=== PATIENT | male | born 1955 | race African-American/Black ===

== ENCOUNTER 2022-01-12 03:49 | Emergency (ER) | payer OTHER, MEDICARE ==
[~2022-01-12] VITALS: Ht 175.3 cm; Wt 93.9 kg
[2022-01-12 04:14] VITALS: BP_SYST 166
--- NOTE | 2022-01-12 04:15 | NUR ---
PER PATIENT, PATIENT HAS HAD A STIFF NECK AND HEADACHE FOR THREE DAYS, INCREASINGLY WORSE. NO OTHER SYMPTOMS.
--- NOTE | 2022-01-12 04:18 | NUR ---
PATIENT BROUGHT TO BED 8 FOR EVAL, REPORT GIVEN TO ESTIVEN FLORES.
[2022-01-12] MEDS ORDERED: KETOROLAC TROMETHAMINE 30 MG VIAL IVP ONE (04:45)
[2022-01-12] MEDS ORDERED: DIPHENHYDRAMINE INJ 50 MG/ML VIAL IVP ONE (04:45)
--- NOTE | 2022-01-12 05:00 | NUR ---
IV ACCESS PLACED AT RT FA G-20 SALINE LOCKED. IV MEDS ORDERED GIVEN FOR PAIN.
--- NOTE | 2022-01-12 05:02 | NUR ---
RECD REPORT FROM [facility] PT BED 8 CONNECETED TO BEDSIDE MONITOR MD CROW IN THE ROOM EXAMINING PATIENT C/O NECK PAIN AND HEADACHE.
[2022-01-12 06:37] LABS: MEAN CORPUSCULAR HEMOGLOBIN 29 pg (27-31); WHITE BLOOD COUNT (AUTO) 8.9 K/uL (4.8-10.8)
[2022-01-12 06:40] LABS: CALCIUM 8.7 mg/dL (8.4-11.0); CREATININE 1.38 mg/dL (0.55-1.30); POTASSIUM 3.7 mmol/L (3.5-5.1)
--- NOTE | 2022-01-12 06:44 | NUR ---
PENDING LAB RESULTS AND CT NECK TO BE DONE.
[2022-01-12 06:45] LABS: ALBUMIN 3.1 g/dL (3.4-4.8); TOTAL BILIRUBIN 0.8 mg/dL (0.0-1.0)
[2022-01-12] MEDS ORDERED: OXYCODONE/ACETAMINOPHEN *10*mg/325 mg TABLET PO ONE (06:45)
[2022-01-12] MEDS ORDERED: DIAZEPAM 5 MG TABLET (VALIUM) PO ONE (06:45)
[2022-01-12] MEDS ORDERED: NACL 0.9% 1,000 ML IV ONE (06:45)
[2022-01-12] MEDS ORDERED: IBUP-1969 PO ×3 (06:46)
[2022-01-12] MEDS ORDERED: PERC10 PO (06:46)
[2022-01-12] MEDS ORDERED: METH-634 PO (06:46)
--- NOTE | 2022-01-12 07:00 | NUR ---
Report received from shift nurse manager RN for continuity of care. Patient stable.
[2022-01-12 07:03] LABS: BASOPHILS % (AUTO) 0.3 % (0.0-2.0); EOSINOPHILS % (AUTO) 0.3 % (0.0-4.0); HEMATOCRIT 40.2 % (36-54); HEMOGLOBIN 13.4 g/dL (14.0-18.0); LYMPHOCYTES # (AUTO) 0.8 K/uL (1.0-5.5); MEAN CORPUSCULAR HGB CONC 33 % (32-36); MEAN CORPUSCULAR VOLUME 86 fL (79.0-98.0); MONOCYTES # (AUTO) 0.7 K/uL (0.0-1.0); MONOCYTES % (AUTO) 8.1 % (1.7-9.3); NEUTROPHILS # (AUTO) 7.3 K/uL (1.8-7.7); NEUTROPHILS % (AUTO) 82.3 % (40.0-70.0); PLATELET COUNT (AUTO) 175 K/uL (130-430); RED BLOOD CELL COUNT(AUTO) 4.66 MIL/uL (4.2-6.2); RED CELL DISTRIBUTION WIDTH 14.8 % (9.0-15.0)
--- NOTE | 2022-01-12 08:49 | NUR ---
Dr. Fernandes speaking with patient and family.
--- NOTE | 2022-01-12 09:00 | NUR ---
Patient given written and verbal discharge instructions and verbalizes understanding. ER MD discussed with patient the results and treatment provided. Patient in stable condition. ID arm band removed. IV catheter removed intact and dressing applied, no active bleeding. Rx of percocet and robaxin given. Patient educated on pain management and to follow up with PMD. Pain Scale . Opportunity for questions provided and answered. Medication side effect fact sheet provided.
[2022-01-12 09:10] VITALS: BP_SYST 130
== END 2022-01-12 09:10 | disposition home or self-care (01) ==
LOC: SED 03:49
DX: M43.6 Torticollis (principal); R51.9 Headache, unspecified; Z79.899 Other long term (current) drug therapy
CPT/HCPCS: 99285; 70450; 96374; 96361; 96375; 80053; 82550; 85025; 36415; 93005; 72125; 76376; J1200; J1885; J7030

== ENCOUNTER 2023-05-16 08:33 | Emergency (ER) | payer OTHER, MEDICARE ==
[~2023-05-16] VITALS: Ht 172.7 cm; Wt 93.9 kg
[~2023-05-16 08:33] MED LIST: IBUP-1969 PO; METH-634 PO; PERC10 PO
[2023-05-16 08:45] VITALS: BP_SYST 157; PULSE 61; RESP 18; TEMP 98.1; O2SAT 98
[2023-05-16] MEDS ORDERED: ZAN4 PO (09:00)
[2023-05-16 09:30] VITALS: BP_SYST 140; PULSE 69; RESP 19; TEMP 98.1; O2SAT 98
== END 2023-05-16 09:30 | disposition home or self-care (01) ==
LOC: SED 08:33
DX: M79.10 Myalgia, unspecified site (principal); R10.31 Right lower quadrant pain; I10 Essential (primary) hypertension; Z79.899 Other long term (current) drug therapy
CPT/HCPCS: 99283

== ENCOUNTER 2023-11-29 09:52 | Inpatient (IN) | payer OTHER, MEDICARE ==
[~2023-11-29] VITALS: Ht 175.3 cm; Wt 97.2 kg
[~2023-11-29 09:52] MED LIST changes: +ZAN4 PO
[2023-11-29 09:56] VITALS: BP_SYST 168; PULSE 85; RESP 22; TEMP 98.3; O2SAT 98
[2023-11-29 11:57] LABS: BASOPHILS % (AUTO) 0.7 % (0.0-2.0); EOSINOPHILS # (AUTO) 0.1 K/uL (0.0-0.4); EOSINOPHILS % (AUTO) 2.3 % (0.0-4.0); HEMATOCRIT 45.5 % (36-54); HEMOGLOBIN 14.7 g/dL (14.0-18.0); LYMPHOCYTES # (AUTO) 2.1 K/uL (1.0-5.5); LYMPHOCYTES % (AUTO) 33.4 % (20.5-51.5); MEAN CORPUSCULAR HEMOGLOBIN 29 pg (27-31); MEAN CORPUSCULAR HGB CONC 32 % (32-36); MEAN CORPUSCULAR VOLUME 88 fL (79.0-98.0); MONOCYTES # (AUTO) 0.4 K/uL (0.0-1.0); MONOCYTES % (AUTO) 6.2 % (1.7-9.3); NEUTROPHILS # (AUTO) 3.6 K/uL (1.8-7.7); NEUTROPHILS % (AUTO) 57.4 % (40.0-70.0); PLATELET COUNT (AUTO) 244 K/uL (130-430); RED BLOOD CELL COUNT(AUTO) 5.16 MIL/uL (4.2-6.2); RED CELL DISTRIBUTION WIDTH 14.4 % (9.0-15.0); WHITE BLOOD COUNT (AUTO) 6.3 K/uL (4.8-10.8)
[2023-11-29] MEDS: ENOXAPARIN SODIUM 100 MG/ML SYRINGE SUBCUT ONE (11:57)
[2023-11-29 12:09] LABS: CALCIUM 9.6 mg/dL (8.4-11.0); CREATININE 1.25 mg/dL (0.55-1.30); POTASSIUM 4.6 mmol/L (3.5-5.1)
[2023-11-29] MEDS ORDERED: EZET10TA30 PO (12:23)
[2023-11-29] MEDS ORDERED: LISI30TA36 PO ×2 (12:23→13:57)
[2023-11-29] MEDS ORDERED: ROSU10TA72 PO (12:23)
[2023-11-29] MEDS: *HEPARIN PER PHARMACY XX ONE (12:30)
[2023-11-29 12:53] LABS: PROTHROMBIN TIME 10.7 SECS (9.5-12.5)
[2023-11-29] MEDS ORDERED: HEPARIN SODIUM,PORCINE 3000 UNITS/0.6 ML BOLUS IVP PRN (13:15)
[2023-11-29] MEDS ORDERED: HEPARIN SODIUM,PORCINE 2000 UNITS/0.4 ML BOLUS IVP PRN (13:15)
[2023-11-29 14:22] LABS: CHOLESTEROL 129 mg/dL (<200); HDL CHOLESTEROL 65 mg/dL (>45); TRIGLYCERIDES 57 mg/dL (30-150)
[2023-11-29] MEDS: HEPARIN SODIUM,PORCINE 5,000 UNITS/ML VIAL IV ONE (15:04)
[2023-11-29] MEDS: HEPARIN 25,000 UNITS in 250 ML PREMIX IV PRN (15:07)
[2023-11-29] MEDS: amLODIPine BESYLATE 5 MG TABLET PO ONE (15:14)
[2023-11-29] MEDS: lisinopriL 20 MG TABLET PO ONE (15:14)
[2023-11-29 16:02] VITALS: BP_SYST 135; PULSE 60; RESP 15; TEMP 98.2; O2SAT 98
[2023-11-29] MEDS: EZETIMIBE 10 MG TABLET PO SCH (18:48)
[2023-11-29 19:30] VITALS: BP_SYST 142; PULSE 64; RESP 20; TEMP 97.9; O2SAT 96
[2023-11-30 03:35] VITALS: BP_SYST 147; PULSE 74; RESP 16; TEMP 97.1; O2SAT 95
[2023-11-30] MEDS ORDERED: iohexoL 350 mgI/mL, 100 ML INFUS..BTL IV ONE (07:31)
[2023-11-30 08:00] VITALS: BP_SYST 145; PULSE 64; RESP 16; TEMP 97.6; O2SAT 98
[2023-11-30] MEDS ORDERED: ROSUVASTATIN CALCIUM 5 MG/TAB (CRESTOR) PO SCH (09:00)
[2023-11-30 09:06] LABS: BASOPHILS % (AUTO) 0.6 % (0.0-2.0); EOSINOPHILS # (AUTO) 0.2 K/uL (0.0-0.4); EOSINOPHILS % (AUTO) 3.3 % (0.0-4.0); HEMATOCRIT 43.4 % (36-54); LYMPHOCYTES # (AUTO) 1.9 K/uL (1.0-5.5); LYMPHOCYTES % (AUTO) 31.6 % (20.5-51.5); MEAN CORPUSCULAR HEMOGLOBIN 29 pg (27-31); MEAN CORPUSCULAR HGB CONC 32 % (32-36); MEAN CORPUSCULAR VOLUME 88 fL (79.0-98.0); MONOCYTES # (AUTO) 0.4 K/uL (0.0-1.0); MONOCYTES % (AUTO) 7.2 % (1.7-9.3); NEUTROPHILS # (AUTO) 3.4 K/uL (1.8-7.7); NEUTROPHILS % (AUTO) 57.3 % (40.0-70.0); PLATELET COUNT (AUTO) 254 K/uL (130-430); RED CELL DISTRIBUTION WIDTH 14.3 % (9.0-15.0)
[2023-11-30 09:10] LABS: ALBUMIN 3.2 g/dL (3.4-4.8); CREATININE 1.41 mg/dL (0.55-1.30); TOTAL BILIRUBIN 0.6 mg/dL (0.0-1.0); TOTAL PROTEIN, SERUM 7.7 g/dL (6.4-8.3)
[2023-11-30] MEDS: lisinopriL 20 MG TABLET PO SCH (09:16)
[2023-11-30] MEDS: ATORVASTATIN 20 MG TABLET PO SCH (09:17)
[2023-11-30 10:54] VITALS: O2SAT 98
[2023-11-30 12:03] VITALS: BP_SYST 141; PULSE 66; RESP 18; TEMP 97.4
[2023-11-30 16:00] VITALS: BP_SYST 147; PULSE 64; RESP 20; TEMP 98.6; O2SAT 100
[2023-11-30 20:45] VITALS: BP_SYST 155; PULSE 70; RESP 20; TEMP 97.8; O2SAT 95
[2023-12-01 00:24] VITALS: BP_SYST 135; PULSE 61; RESP 18; TEMP 97.6; O2SAT 98
[2023-12-01 07:55] VITALS: BP_SYST 143; PULSE 68; RESP 17; TEMP 97.8; O2SAT 98
[2023-12-01 08:00] VITALS: O2SAT 100; O2SAT 98
[2023-12-01 08:06] LABS: HOMOCYSTEINE, PLASMA 11.7 umol/L (0.0-17.2)
[2023-12-01 08:34] LABS: BASOPHILS % (AUTO) 0.5 % (0.0-2.0); EOSINOPHILS # (AUTO) 0.2 K/uL (0.0-0.4); EOSINOPHILS % (AUTO) 2.8 % (0.0-4.0); HEMATOCRIT 44.4 % (36-54); HEMOGLOBIN 14.6 g/dL (14.0-18.0); LYMPHOCYTES # (AUTO) 2.3 K/uL (1.0-5.5); LYMPHOCYTES % (AUTO) 35.1 % (20.5-51.5); MEAN CORPUSCULAR HEMOGLOBIN 29 pg (27-31); MEAN CORPUSCULAR HGB CONC 33 % (32-36); MEAN CORPUSCULAR VOLUME 88 fL (79.0-98.0); MONOCYTES # (AUTO) 0.6 K/uL (0.0-1.0); MONOCYTES % (AUTO) 8.4 % (1.7-9.3); NEUTROPHILS # (AUTO) 3.5 K/uL (1.8-7.7); NEUTROPHILS % (AUTO) 53.2 % (40.0-70.0); PLATELET COUNT (AUTO) 263 K/uL (130-430); RED BLOOD CELL COUNT(AUTO) 5.06 MIL/uL (4.2-6.2); RED CELL DISTRIBUTION WIDTH 14.1 % (9.0-15.0); WHITE BLOOD COUNT (AUTO) 6.6 K/uL (4.8-10.8)
[2023-12-01 08:43] LABS: ALBUMIN 3.5 g/dL (3.4-4.8); CALCIUM 9.4 mg/dL (8.4-11.0); CREATININE 1.45 mg/dL (0.55-1.30); POTASSIUM 4.1 mmol/L (3.5-5.1); TOTAL BILIRUBIN 0.6 mg/dL (0.0-1.0); TOTAL PROTEIN, SERUM 8.3 g/dL (6.4-8.3)
[2023-12-01] MEDS: amLODIPine BESYLATE 10 MG TABLET PO SCH (09:57)
[2023-12-01] MEDS: APIXABAN 2.5 MG TABLET PO SCH (09:58)
[2023-12-01] MEDS ORDERED: LIP20 PO (11:52)
[2023-12-01] MEDS ORDERED: NOR10 PO (11:52)
[2023-12-01 12:11] VITALS: BP_SYST 143; PULSE 68; RESP 17; TEMP 97.8
[2023-12-01 12:50] VITALS: BP_SYST 140; PULSE 64; RESP 18; TEMP 97.6; O2SAT 97
[2023-12-01] MEDS ORDERED: EZET10TA30 PO (13:54)
[2023-12-01] MEDS ORDERED: LISI20TA30 PO (13:54)
[2023-12-01] MEDS ORDERED: APIX5TAB PO (13:54)
[2023-12-03 14:06] LABS: ANTITHROMBIN III ACTIVITY 85 % (75-135)
== END 2023-12-01 14:35 | disposition home or self-care (01) | DRG 300 ==
LOC: SED 09:52 → STU 12:14 → SMU 12-01 14:12
PROVIDERS: ADMIT Student in an Organized Health Care Education/Training Program; ATTEND Student in an Organized Health Care Education/Training Program
DX: I82.431 Acute embolism and thrombosis of right popliteal vein (principal); E44.1 Mild protein-calorie malnutrition; N17.9 Acute kidney failure, unspecified; I82.441 Acute embolism and thrombosis of right tibial vein; E78.5 Hyperlipidemia, unspecified; I12.9 Hypertensive chronic kidney disease with stage 1 through stage 4 chronic kidney disease, or unspecified chronic kidney disease; N18.2 Chronic kidney disease, stage 2 (mild); Z79.899 Other long term (current) drug therapy; Z68.31 Body mass index [BMI] 31.0-31.9, adult; I82.451 Acute embolism and thrombosis of right peroneal vein
CPT/HCPCS: 36415; 71046; 71275; 80048; 80053; 80061; 81403; 81407; 81479; 83037; 83090; 85025; 85300; 85306; 85379; 85610; 85730; 86147; 93005; 93306; 93971; 99285; G0378; J1644; J1650; Q9967